=== PATIENT | female | born 1935 | race Hispanic/Latino ===

== ENCOUNTER 2017-12-23 13:10 | Emergency (ER) | payer MEDICARE, OTHER ==
[2017-12-23 13:44] VITALS: BP 92/44
--- NOTE | 2017-12-23 14:05 | Emergency Department Report ---
ED Upper Extremity Inj HPI - General Chief Complaint: Extremity Injury, Upper Stated Complaint: LAC TO RT MIDDLE FINGER/SKIN TEAR Time Seen by Provider: 12/23/17 13:45 Source: patient, family, EMS Mode of arrival: Stretcher Limitations: No Limitations - Related Data Allergies Allergy/AdvReac Type Severity Reaction Status Date / Time Penicillins Allergy Unknown Verified 12/23/17 13:35 ED Review of Systems ROS: Stated complaint: LAC TO RT MIDDLE FINGER/SKIN TEAR Other details as noted in HPI ED Past Medical Hx - Past Medical History Hx GERD: Yes Additional medical history: Hypothyroid - Social History Smoking Status: Never Smoker Substance Use Type: None ED Physical Exam - General Limitations: No Limitations ED Course Vital Signs 12/23/17 13:42 Temperature 98.2 F Pulse Rate 65 Respiratory 16 Rate Blood Pressure 92/44 [Left] O2 Sat by Pulse 98 Oximetry Critical care attestation.: If time is entered above; I have spent that time in minutes in the direct care of this critically ill patient, excluding procedure time. ED Disposition Condition: Stable Referrals: PRIMARY CARE, [Primary Care Provider] - 3-5 Days
--- NOTE | 2017-12-23 14:48 | Emergency Department Report ---
ED Upper Extremity Inj HPI - General Chief Complaint: Extremity Injury, Upper Stated Complaint: LAC TO RT MIDDLE FINGER/SKIN TEAR Time Seen by Provider: 12/23/17 13:45 Source: patient, family, EMS Mode of arrival: Stretcher Limitations: No Limitations - History of Present Illness Initial Comments: This is a 82-year-old female brought by son nontoxic, well nourished in appearance, no acute signs of distress presents to the ED with c/o of right middle finger skin avulsion. Son stated that patient cut her finger on the bed in a [place] [facility]. Patient and son denies any other trauma. Son denies patient being UTD with tetanus. Patient denies any numbness, tingling, decreased sensation/ROM, chest pain, shortness of breath, fever, chills, nausea , vomiting. Patient is allergies to penicillin. MD Complaint: Injury to:: right, finger -: This morning Other Extremity Injury: Fingers: Right Other Injuries: none Place: home Improves With: none Worsens With: none Context: laceration Associated Symptoms: denies other symptoms. denies: weakness, numbness, neck pain, suspects foreign body, nausea/vomiting, heard/felt popping sensat - Related Data Previous Rx's Medication Instructions Recorded Last Taken Type Clindamycin [Clindamycin CAP] 300 mg PO Q8H #21 cap 12/23/17 Unknown Rx Allergies Allergy/AdvReac Type Severity Reaction Status Date / Time Penicillins Allergy Unknown Verified 12/23/17 13:35 ED Review of Systems ROS: Stated complaint: LAC TO RT MIDDLE FINGER/SKIN TEAR Other details as noted in HPI Constitutional: denies: chills, fever Eyes: denies: eye pain, eye discharge, vision change ENT: denies: ear pain, throat pain Respiratory: denies: cough, shortness of breath, wheezing Cardiovascular: denies: chest pain, palpitations Endocrine: no symptoms reported Gastrointestinal: denies: abdominal pain, nausea, diarrhea Genitourinary: denies: urgency, dysuria, discharge Musculoskeletal: denies: back pain, joint swelling, arthralgia Skin: denies: rash, lesions Neurological: denies: headache, weakness, paresthesias Psychiatric: denies: anxiety, depression Hematological/Lymphatic: denies: easy bleeding, easy bruising ED Past Medical Hx - Past Medical History Hx GERD: Yes Additional medical history: Hypothyroid - Social History Smoking Status: Never Smoker Substance Use Type: None - Medications Home Medications: Home Medications Medication Instructions Recorded Confirmed Last Taken Type Clindamycin [Clindamycin CAP] 300 mg PO Q8H #21 cap 12/23/17 Unknown Rx ED Physical Exam - General Limitations: No Limitations General appearance: alert, in no apparent distress - Head Head exam: Present: atraumatic, normocephalic - Eye Eye exam: Present: normal appearance - ENT ENT exam: Present: mucous membranes moist - Neck Neck exam: Present: normal inspection - Respiratory Respiratory exam: Present: normal lung sounds bilaterally. Absent: respiratory distress - Cardiovascular Cardiovascular Exam: Present: regular rate, normal rhythm. Absent: systolic murmur, diastolic murmur, rubs, gallop - GI/Abdominal GI/Abdominal exam: Present: soft, normal bowel sounds - Extremities Exam Extremities exam: Present: normal inspection, full ROM, tenderness, normal capillary refill. Absent: joint swelling - Expanded Upper Extremity Exam Right General: Present: normal inspection Shoulder Exam: Present: normal inspection, full ROM. Absent: tenderness, swelling Upper Arm exam: Present: normal inspection, full ROM. Absent: tenderness, swelling Elbow exam: Present: normal inspection, full ROM. Absent: tenderness, swelling Forearm Wrist exam: Present: normal inspection, full ROM. Absent: tenderness, swelling Hand Wrist exam: Present: normal inspection, full ROM, tenderness, abrasion, other (skin avulsion with bone/tendon visualization. Bleeding under control. Neurovascular intact.). Absent: swelling, laceration, ecchymosis, deformity, crepidus, dislocation, erythema, amputation, nail avulsion, subungual hematoma Hand L/R Back: 1 - skin avulsion Neuro motor exam: Present: wrist extension intact, thumb opposition intact, thumb IP flexion intact, thumb adduction intact, fingers 2-5 abduction intact Neurosensory exam: Present: 2-point discrimination, radial nerve intact, ulnar nerve intact, median nerve intact Vascular: Present: vascular compromise, normal capillary refill, radial pulse, brachial pulse, ulnar pulse - Back Exam Back exam: Present: normal inspection, full ROM - Neurological Exam Neurological exam: Present: alert, oriented X3, normal gait - Psychiatric Psychiatric exam: Present: normal affect, normal mood - Skin Skin exam: Present: warm, dry, intact, normal color. Absent: rash ED Course Vital Signs 12/23/17 13:42 Temperature 98.2 F Pulse Rate 65 Respiratory 16 Rate Blood Pressure 92/44 [Left] O2 Sat by Pulse 98 Oximetry - Reevaluation(s) Reevaluation #1: 12/23/17 16:24 Patient is speaking in full sentences with no signs of distress noted. - Consultations Consultation #1: 12/23/17 15:14 Patient has been consulted with Dr. Perry about patient history, physical exam, and xray and examined and screened patient and agrees to ED plan of care and discharge plan of care. Consultation #2: 12/23/17 16:28 Patient has been consulted with Dr. Mishra (orthopedic) about patient history, physical exam, and sent pictures via text and stated it is mostly tendon and no sutures to be placed but apply wet to dry dressing and have patient follow-up outpatient for skin graft. ED Medical Decision Making - Medical Decision Making This is a 82-year-old female that presents with skin avulsion. Patient is stable and was examined by me and Dr. Perry. Finger neurovascularly intact. The case has been discussed with Dr. Mishra. Finger has been soaked with iodine with water and then has been cleaned with sterile water. A sterile dressing has been applied. The patient and son was educated on wound care. Patient received tetanus in the ER and is discharged with clindamycin. At time of discharge, the patient does not seem toxic or ill in appearance. No acute signs of distress noted. Patient agrees to discharge treatment plan of care. No further questions noted by the patient. Critical care attestation.: If time is entered above; I have spent that time in minutes in the direct care of this critically ill patient, excluding procedure time. ED Disposition Clinical Impression: Skin avulsion Disposition: DC-01 TO HOME OR SELFCARE Is pt being admited?: No Does the pt Need Aspirin: No Condition: Stable Instructions: Acute Wound Care (ED) Additional Instructions: Follow-up with a orthopedic doctor in 3-5 days or if symptoms worsen and continue return to emergency room as soon as possible. Apple wet to dry sterile dressing change every 4 hours. Keep area clean. Prescriptions: Clindamycin [Clindamycin CAP] 300 mg PO Q8H #21 cap Referrals: PRIMARY CAREMD [Primary Care Provider] - 3-5 Days JOSH MISHRA MD [Staff Physician] - 3-5 Days
[2017-12-23] MEDS ORDERED: BOOSTRIX IM ONE (15:24)
--- NOTE | 2017-12-23 16:14 | XRay Report ---
XRAY RIGHT HAND THREE VIEWS: 12/23/17 13:10:00 CLINICAL: Right hand pain. FINDINGS: Moderate diffuse osteopenia. No fracture or dislocation. Severe osteoarthritis at the first MCP joint and moderate osteoarthritis at the basal joint of the thumb. No erosions. Minimal arthritis at the other joints. The carpal bones are intact. The distal radius and ulna are intact. Normal soft tissues. IMPRESSION: Severe osteoarthritis of the thumb. Minimal additional arthritis of the hand and wrist.
== END 2017-12-23 16:58 | disposition home or self-care (01) ==
LOC: ED 13:10
DX: S61.302A Unspecified open wound of right middle finger with damage to nail, initial encounter (principal); K21.9 Gastro-esophageal reflux disease without esophagitis; E03.9 Hypothyroidism, unspecified; Z88.0 Allergy status to penicillin; W45.8XXA Other foreign body or object entering through skin, initial encounter; Y93.89 Activity, other specified; Y92.89 Other specified places as the place of occurrence of the external cause; Y99.8 Other external cause status
CPT/HCPCS: 90471; 90715; 99284